=== PATIENT | male | born 1940 | race Caucasian/White ===

== ENCOUNTER 2018-12-18 17:34 | Inpatient (IN) | payer MEDICARE, BC ==
[2018-12-18] MEDS ORDERED: Acetaminophen 500 MG Tab PO ONE (17:50)
--- NOTE | 2018-12-18 17:56 | EDM.PDOC ---
ED HPI GENERAL MEDICAL PROBLEM - General Chief Complaint: Respiratory Problem Stated Complaint: Patient states he has been feeling weak all day tried to get out of bed approximately 4:00 7 while trying to get up and more or less slid out of the bed on the floor and EMS was called he denies any trauma head injury chest pain shortness breath says he has felt warm all day like he's had a fever and just generalized weakness Time Seen by Provider: 12/18/18 17:45 Source of Information: Reports: Patient, EMS History Limitations: Reports: No Limitations - History of Present Illness Onset: Today Duration: Day(s): Associated Symptoms: Reports: Cough, cough w sputum, Fever/Chills, Weakness. Denies: Chest Pain, Diaphoresis, Headaches, Nausea/Vomiting, Shortness of Breath , Syncope Treatments [employer]: Denies: Acetaminophen, Aspirin, Breathing Treatments - Related Data Allergies Allergy/AdvReac Type Severity Reaction Status Date / Time amoxicillin Allergy Cannot Verified 12/18/18 18:00 Remember tetanus immune globulin Allergy Cannot Verified 12/18/18 18:00 Remember chicken derived AdvReac Abdominal Verified 12/18/18 18:00 Cramps Home Meds: Home Meds Acetaminophen [Acetaminophen Extra Strength] 1,000 mg PO Q8HR 02/13/15 [History] Aspirin [Halfprin] 81 mg PO DAILY 02/13/15 [History] Carvedilol [Coreg] 25 mg PO BIDM 02/13/15 [History] Finasteride [Proscar] 5 mg PO DAILY 02/13/15 [History] Flaxseed Oil [Flax Oil] 1,000 mg PO DAILY 02/13/15 [History] Furosemide [Lasix] 20 mg PO BID 02/13/15 [History] Lutein 6 mg PO DAILY 02/13/15 [History] Multivitamin with Minerals [Multiple Vitamin] 1 tab PO DAILY 02/13/15 [History] Pravastatin [Pravachol] 40 mg PO DAILY 02/13/15 [History] Vit B Cmplx 3/Fa/Vit C/Biotin [Mirian-Babar Rx Tablet] 1 each PO DAILY 02/13/15 [ History] Docusate Sodium/Sennosides [Senna Plus] 1 tab PO BID #60 tablet 05/18/15 [Rx] Polyethylene Glycol 3350 [MiraLAX] 17 gm PO DAILY #30 packet 05/18/15 [Rx] Baclofen 10 mg PO TID PRN 12/18/18 [History] DULoxetine [Cymbalta] 30 mg PO TID 12/18/18 [History] Gabapentin [Neurontin] 400 mg PO BID 12/18/18 [History] Gabapentin [Neurontin] 400 mg PO BID 12/18/18 [History] Ipratropium [Atrovent HFA Inh] 2 puff IH Q4H PRN 12/18/18 [History] Vitamin E (dl, acetate) [Vitamin E] 200 units PO BID 12/18/18 [History] ED ROS GENERAL - Review of Systems Review Of Systems: See Below Constitutional: Reports: Fever, Weakness, Fatigue. Denies: Chills, Diaphoresis HEENT: Reports: No Symptoms Respiratory: Reports: Cough, Sputum. Denies: Shortness of Breath, Wheezing, Pleuritic Chest Pain Cardiovascular: Reports: Edema (Patient states he has daily chronic edema no changes from his baseline which he takes Lasix for). Denies: Chest Pain Endocrine: Reports: Fatigue GI/Abdominal: Reports: No Symptoms. Denies: Abdominal Pain, Anorexia, Black Stool, Bloody Stool : Reports: No Symptoms Musculoskeletal: Reports: No Symptoms Skin: Reports: No Symptoms Neurological: Reports: Weakness (Generalized weakness all over denies any specific weakness to any extremity). Denies: Confusion, Dizziness, Headache, Numbness Psychiatric: Reports: No Symptoms Hematologic/Lymphatic: Denies: Easy Bleeding, Easy Bruising Immunologic: Reports: No Symptoms ED EXAM, GENERAL - Physical Exam Exam: See Below Exam Limited By: No Limitations General Appearance: Alert, WD/WN, No Apparent Distress Eye Exam: Bilateral Eye: PERRL Ears: Normal External Exam, Hearing Grossly Normal Nose: Normal Inspection, Normal Mucosa. No: Nasal Swelling Throat/Mouth: Normal Inspection, Normal Lips, Normal Teeth, Normal Gums, Normal Oropharynx (Moist membranes), Normal Voice, No Airway Compromise, Other (mmm) Head: Atraumatic, Normocephalic Neck: Normal Inspection, Supple, Non-Tender, Full Range of Motion. 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 No : Non-Tender, No Pedal Edema Neurological: Alert, Oriented, CN II-XII Intact, Normal Cognition Skin Exam: Warm, Dry, Intact, Normal Color, No Rash, Other (Patient does feel warm over the body) Course - Vital Signs Last Recorded V/S: Last Vital Signs Temp 37.0 C 12/19/18 10:00 Pulse 69 12/19/18 10:00 Resp 16 12/19/18 10:00 BP 128/73 12/19/18 10:00 Pulse Ox 95 12/19/18 10:00 - Orders/Labs/Meds Orders: Active Orders 24 hr Category Date Time Status CULTURE BLOOD [BC] Stat Lab 12/18/18 18:30 Received CULTURE BLOOD [BC] Stat Lab 12/18/18 18:35 Received Blood Culture x2 Reflex Set [OM.PC] Stat Oth 12/18/18 17:49 Ordered Medication Orders Acetaminophen (Tylenol Extra Strength) 1,000 mg PO Q8HR [facility] Last Admin: 12/19/18 07:50 Dose: 1,000 mg Admin: 12/19/18 00:41 Dose: 1,000 mg Aspirin (Halfprin) 81 mg PO DAILY [facility] Last Admin: 12/19/18 07:51 Dose: 81 mg Azithromycin (Zithromax) 250 mg PO DAILY [facility] Stop: 12/22/18 08:01 Last Admin: 12/19/18 07:50 Dose: 250 mg Baclofen (Lioresal) 10 mg PO TID PRN PRN Reason: Other Carvedilol (Coreg) 25 mg PO BIDM [facility] Last Admin: 12/19/18 07:50 Dose: 25 mg Duloxetine HCl (Cymbalta) 30 mg PO TID [facility] Last Admin: 05/12/19 11:06 Dose: 30 mg Admin: 12/19/18 07:50 Dose: 30 mg Finasteride (Proscar) 5 mg PO DAILY [facility] Last Admin: 12/19/18 07:50 Dose: 5 mg Furosemide (Lasix) 20 mg IV Q8H [facility] Last Admin: 12/19/18 07:51 Dose: 20 mg Admin: 12/19/18 00:34 Dose: 20 mg Gabapentin (Neurontin) 400 mg PO BID [facility] Last Admin: 12/19/18 07:50 Dose: 400 mg Guaifenesin (Mucinex) 600 mg PO TID [facility] Last Admin: 12/19/18 11:07 Dose: 600 mg Admin: 12/19/18 07:50 Dose: 600 mg Levalbuterol HCl (Xopenex) 1.25 mg NEB Q4H [facility] Last Admin: 12/19/18 11:06 Dose: 1.25 mg Admin: 12/19/18 06:16 Dose: 1.25 mg Admin: 12/19/18 03:23 Dose: Not Given Methylprednisolone Sodium Succinate (Solu-Medrol) 125 mg IVPUSH Q8H [facility] Last Admin: 12/19/18 07:51 Dose: 125 mg Admin: 12/19/18 00:34 Dose: 125 mg Non-Formulary Medication (Flaxseed Oil [Flax Oil]) 1,000 mg PO DAILY [facility] Last Admin: 12/19/18 07:51 Dose: Non-Formulary Medication (Pravastatin Sodium) 40 mg PO DAILY [facility] Last Admin: 12/19/18 07:51 Dose: Polyethylene Glycol (Miralax) 17 gm PO DAILY PRN PRN Reason: Constipation Senna/Docusate Sodium (Senna Plus) 1 tab PO BID [facility] Last Admin: 12/19/18 07:50 Dose: 1 tab Sodium Chloride (Saline Flush) 10 ml IV ASDIRECTED PRN PRN Reason: Keep Vein Open Labs: Laboratory Tests 12/18/18 12/18/18 12/18/18 Range/Units 18:00 18:30 18:30 WBC 9.1 (4.0-10.0) x10^3/uL RBC 5.49 (4.5-6.0) x10^6/uL Hgb 14.7 D (14.0-18.0) g/dL Hct 45.6 (40.0-52.0) % MCV 83.1 (78.0-93.0) fL MCH 26.8 (26.0-32.0) pg MCHC 32.2 (32.0-36.0) g/dL RDW Coeff of Dina 14.3 (10.0-15.0) % Plt Count 148 (130-400) x10^3/uL Neut % (Auto) 87.3 H (50.0-80.0) % Lymph % (Auto) 6.0 L (25.0-50.0) % [place] % (Auto) 6.3 (2.0-11.0) % Eos % (Auto) 0.2 (0.0-4.0) % Baso % (Auto) 0.2 (0.2-1.2) % Sodium 143 (136-145) mmol/L Potassium 3.9 (3.5-5.1) mmol/L Chloride 102 (98-107) mmol/L Carbon Dioxide 33 H (21-32) mmol/L Anion Gap 11.9 (10-20) mmol/L BUN 16 (7-18) mg/dL Creatinine 1.4 H (0.70-1.30) mg/dL Est Cr Clr Drug Dosing TNP Estimated GFR (MDRD) 49 Glucose 123 H (74-106) mg/dL Calcium 8.5 (8.5-10.1) mg/dL Troponin I 0.020 (<=0.056) ng/mL Urine Color Yellow (YELLOW) Urine Appearance Slightly cloudy H (CLEAR) Urine pH 7.0 (5.0-8.0) Ur Specific [place] 1.015 Urine Protein Negative (NEGATIVE) mg/dL Urine Glucose (UA) Negative (NEGATIVE) mg/dL Urine Ketones Negative (NEGATIVE) mg/dL Urine Occult Blood Negative (NEGATIVE) Urine Nitrite Negative (NEGATIVE) Urine Bilirubin Negative (NEGATIVE) Urine Urobilinogen 0.2 (0.2) EU/dL Ur Leukocyte Esterase Negative (NEGATIVE) Urine RBC 0-5 (NOT SEEN) /HPF Urine WBC 0-5 (NOT SEEN) /HPF Ur Squamous Epith Cells Not seen (NEGATIVE) /HPF Urine Bacteria Rare (NEGATIVE) /HPF Urine Mucus Moderate H (NEGATIVE) /LPF Meds: Medications Generic Name Dose Route Start Last Admin Trade Name Freq PRN Reason Stop Dose Admin Acetaminophen 1,000 mg 12/19/18 00:00 12/19/18 07:50 Tylenol Extra Strength PO 1,000 mg Q8HR TIFFANI Administration Aspirin 81 mg 12/19/18 08:00 12/19/18 07:51 Halfprin PO 81 mg DAILY TIFFANI Administration Azithromycin 250 mg 12/19/18 08:00 12/19/18 07:50 Zithromax PO 12/22/18 08:01 250 mg DAILY TIFFANI Administration Baclofen 10 mg 12/18/18 21:41 Lioresal PO TID PRN Other Carvedilol 25 mg 12/19/18 08:00 12/19/18 07:50 Coreg PO 25 mg BIDM TIFFANI Administration Duloxetine HCl 30 mg 12/19/18 08:00 12/19/18 11:06 Cymbalta PO 30 mg TID TIFFANI Administration Finasteride 5 mg 12/19/18 08:00 12/19/18 07:50 Proscar PO 5 mg DAILY TIFFANI Administration Furosemide 20 mg 12/19/18 00:00 12/19/18 07:51 Lasix IV 20 mg Q8H TIFFANI Administration Gabapentin 400 mg 12/19/18 08:00 12/19/18 07:50 Neurontin PO 400 mg BID TIFFANI Administration Guaifenesin 600 mg 12/19/18 08:00 12/19/18 11:07 Mucinex PO 600 mg TID TIFFANI Administration Levalbuterol HCl 1.25 mg 12/19/18 03:00 12/19/18 11:06 Xopenex NEB 1.25 mg Q4H TIFFANI Administration Methylprednisolone Sodium Succinate 125 mg 12/19/18 00:00 12/19/18 07:51 Solu-Medrol IVPUSH 125 mg Q8H TIFFANI Administration Non-Formulary Medication 1,000 mg 12/19/18 08:00 12/19/18 07:51 Flaxseed Oil [Flax Oil] PO Not Given DAILY [facility] Non-Formulary Medication 40 mg 12/19/18 08:00 12/19/18 07:51 Pravastatin Sodium PO Not Given DAILY [facility] Polyethylene Glycol 17 gm 12/19/18 00:21 Miralax PO DAILY PRN Constipation Senna/Docusate Sodium 1 tab 12/19/18 08:00 12/19/18 07:50 Senna Plus PO 1 tab BID TIFFANI Administration Sodium Chloride 10 ml 05/12/19 00:47 Saline Flush IV ASDIRECTED PRN Keep Vein Open Discontinued Medications Generic Name Dose Route Start Last Admin Trade Name Abebe PRN Reason Stop Dose Admin Acetaminophen 1,000 mg 12/18/18 17:50 12/18/18 18:03 Tylenol Extra Strength PO 12/18/18 17:51 1,000 mg ONETIME ONE Administration Azithromycin 500 mg 12/19/18 00:02 12/19/18 00:41 Zithromax PO 12/19/18 00:03 500 mg ONETIME ONE Administration Guaifenesin 600 mg 12/19/18 00:05 12/19/18 01:26 Mucinex PO 12/19/18 00:06 Not Given ONETIME ONE Guaifenesin 400 mg 12/19/18 00:07 Robitussin PO Q6H PRN Cough Guaifenesin 400 mg 12/19/18 00:14 12/19/18 01:00 Robitussin PO 12/19/18 00:15 400 mg ONETIME ONE Administration Levalbuterol HCl 1.25 mg 12/19/18 00:30 12/19/18 00:36 Xopenex NEB 1.25 mg Q4H TIFFANI Administration Non-Formulary Medication 400 mg 12/19/18 08:00 Gabapentin PO BID TIFFANI Polyethylene Glycol 17 gm 12/19/18 08:00 Miralax PO DAILY TIFFANI - Re-Assessments/Exams Free Text/Narrative Re-Assessment/Exam: 12/18/18 17:57 Labs were ordered CBC BMP and blood cultures 2 troponin secondary to weakness chest x-ray and urinalysis as well 12/18/18 20:01 Due to patient's condition initially oxygen saturations around 85% on room air patient will be admitted for observation pathway of COPD/Hypoxia giving treatments for a while waiting the patient remembers that he has been on Spiriva in the past but has not lately secondary to cost Free Text/Narrative Re-Assessment/Exam: 12/18/18 19:55 CBC was within normal limits BMP baseline normal UA was negative chest x-ray no acute cardiopulmonary abnormality Departure - Departure Time of Disposition: 20:00 Disposition: Refer to Observation Condition: Good Clinical Impression: Weakness, COPD (chronic obstructive pulmonary disease), Hypoxia, Fever, CHF ( congestive heart failure) - Discharge Information - Problem List & Annotations (1) COPD (chronic obstructive pulmonary disease) SNOMED Code(s): 76672246 Code(s): J44.9 - CHRONIC OBSTRUCTIVE PULMONARY DISEASE, UNSPECIFIED Status : Acute Current Visit: Yes (2) Hypoxia SNOMED Code(s): 949869212 Code(s): R09.02 - HYPOXEMIA Status: Acute Current Visit: Yes (3) COPD (chronic obstructive pulmonary disease) SNOMED Code(s): 09982902 Code(s): J44.9 - CHRONIC OBSTRUCTIVE PULMONARY DISEASE, UNSPECIFIED Status : Acute Current Visit: Yes - My Orders Last 24 Hours: My Active Orders 12/18/18 17:49 Blood Culture x2 Reflex Set [OM.PC] Stat 12/18/18 18:30 CULTURE BLOOD [BC] Stat 12/18/18 18:35 CULTURE BLOOD [BC] Stat - Assessment/Plan Admission H&P: Please use this note as an admission H&P Last 24 Hours: My Active Orders 12/18/18 17:49 Blood Culture x2 Reflex Set [OM.PC] Stat 12/18/18 18:30 CULTURE BLOOD [BC] Stat 12/18/18 18:35 CULTURE BLOOD [BC] Stat Plan: Patient will be placed in observation overnight he will be given Solu-Medrol 125 mg IV every 8 hours Lasix 20 mg every 8 hours Zithromax 500 mg by mouth now followed by 250 by mouth daily for 4 days patient will be placed on oxygen at 2 L nasal cannula patient will also be given guaifenesin for her milligrams every 6 hours Xopenex nebulizer Q4 to 6 hours
--- NOTE | 2018-12-18 18:44 | CR ---
[id number] RAD/RAD Chest PA or AP 1V EXAM: RAD Chest PA or AP 1V INDICATION: FEVER COMPARISON: March 01, 2015. DISCUSSION: Median sternotomy wires. Cardiomediastinal silhouette is stable in size and contour. No infiltrate, effusion, pneumothorax, or edema. IMPRESSION: No acute cardiopulmonary abnormality. Danie Maya DO 12/18/18 1843 Thank you for allowing us to participate in the care of your patient.
[2018-12-18 19:06] LABS: CHLORIDE,CL 102 mmol/L (98-107); SODIUM,NA 143 mmol/L (136-145)
[2018-12-18 19:07] LABS: ANION GAP 11.9 mmol/L (10-20)
[2018-12-18] MEDS ORDERED: Baclofen 10 MG Tab PO PRN (21:41)
[2018-12-19] MEDS ORDERED: Azithromycin 250 MG Tab PO ONE (00:02)
[2018-12-19] MEDS ORDERED: guaiFENesin 600 MG Tab.ER PO ONE (00:05)
[2018-12-19] MEDS ORDERED: guaiFENesin 100 MG/5 ML Soln 10 ML UD Cup PO PRN (00:07)
[2018-12-19] MEDS ORDERED: guaiFENesin 100 MG/5 ML Soln 10 ML UD Cup PO ONE (00:14)
[2018-12-19] MEDS ORDERED: Levalbuterol HCl 1.25 MG/0.5 ML Neb NEB SCH (00:30)
[2018-12-19] MEDS: methylPREDNISolone Sodium Succinate 125 MG/2 ML SDV IVPUSH SCH ×3 (00:34→16:27)
[2018-12-19] MEDS: Furosemide 20 MG/2 ML VIAL IV SCH ×3 (00:34→16:27)
[2018-12-19] MEDS: Acetaminophen 500 MG Tab PO SCH ×3 (00:41→16:27)
[2018-12-19] MEDS: Levalbuterol HCl 1.25 MG/0.5 ML Neb NEB SCH ×6 (03:23→23:43)
[2018-12-19] MEDS: Azithromycin 250 MG Tab PO SCH (07:50)
[2018-12-19] MEDS: Gabapentin 400 MG Cap PO SCH ×2 (07:50→20:52)
[2018-12-19] MEDS: guaiFENesin 600 MG Tab.ER PO SCH ×3 (07:50→20:52)
[2018-12-19] MEDS: Finasteride 5 MG Tab PO SCH (07:50)
[2018-12-19] MEDS: DULoxetine 30 MG Cap PO SCH ×3 (07:50→20:52)
[2018-12-19] MEDS: Carvedilol 25 MG Tab PO SCH ×2 (07:50→17:29)
[2018-12-19] MEDS: FLAXSEED OIL 1000 MG PO SCH (07:51)
[2018-12-19] MEDS: Non-Formulary Medication 1 Each (Pravastatin Sodium 40 MG) PO SCH (07:51)
[2018-12-19] MEDS: Aspirin 81 MG Tab.EC PO SCH (07:51)
[2018-12-19] MEDS ORDERED: Non-Formulary Medication 1 Each (Gabapentin 400 MG) PO SCH (08:00)
[2018-12-19] MEDS ORDERED: Polyethylene Glycol 3350 Powder 17 GM Packet PO SCH (08:00)
[2018-12-19] MEDS: Polyethylene Glycol 3350 Powder 17 GM Packet PO PRN (21:01)
[2018-12-20] MEDS: Furosemide 20 MG/2 ML VIAL IV SCH ×4 (01:14→23:09)
[2018-12-20] MEDS: Sodium Chloride 0.9% 10 ML Syringe IV PRN ×3 (01:15→23:09)
[2018-12-20] MEDS: methylPREDNISolone Sodium Succinate 125 MG/2 ML SDV IVPUSH SCH ×4 (01:15→23:08)
[2018-12-20] MEDS: Acetaminophen 500 MG Tab PO SCH ×4 (01:17→23:09)
[2018-12-20] MEDS: Levalbuterol HCl 1.25 MG/0.5 ML Neb NEB SCH ×6 (03:10→23:09)
[2018-12-20] MEDS: Polyethylene Glycol 3350 Powder 17 GM Packet PO PRN (06:36)
[2018-12-20] MEDS: Aspirin 81 MG Tab.EC PO SCH (07:41)
[2018-12-20] MEDS: Azithromycin 250 MG Tab PO SCH (07:41)
[2018-12-20] MEDS: Carvedilol 25 MG Tab PO SCH ×2 (07:41→17:44)
[2018-12-20] MEDS: Finasteride 5 MG Tab PO SCH (07:41)
[2018-12-20] MEDS: guaiFENesin 600 MG Tab.ER PO SCH ×3 (07:41→20:46)
[2018-12-20] MEDS: Gabapentin 400 MG Cap PO SCH ×2 (07:41→20:46)
[2018-12-20] MEDS: DULoxetine 30 MG Cap PO SCH ×3 (07:41→20:46)
[2018-12-20] MEDS: FLAXSEED OIL 1000 MG PO SCH (07:42)
[2018-12-20] MEDS: Non-Formulary Medication 1 Each (Pravastatin Sodium 40 MG) PO SCH (07:43)
--- NOTE | 2018-12-20 15:25 | PCM.HP ---
H&P History of Present Illness - General Date of Service: 12/20/18 Admit Problem/Dx: Admission Diagnosis/Problem HPI: He was admitted to observation on 12/18 and changed to Acute Care status today because he is still requiring oxygen at 2L/min. On admission he had about 36 hours of cough and low-grade fever, has known COPD following a 40+ pk-yr smoking Hx, quit in . Prior to heart surgery in he had PFTs which showed FEV1/FVC 57% of predicted, FEV1 53% of predicted. He was advised to use inhalers but found them too expensive so he has not done that. On the day of admission he felt unusually weak, vision was blurred, increased dyspnea and was seen in ER. Troponin was negative, EKG showed LBBB, unknown when he developed that but his last EKG 06/23 did not show it. He was admitted to observation and Rx Zithromax for exacerbation of COPD. He was not having any chest pain then, but today he still requires oxygen at 2L and he had some discomfort across his entire chest this morning, lasting for about one hour. Troponin is again negative. He denies having any exertional chest pain for many years, although in 11/21 he did have a Persantin/Lexiscan PET for exertional chest pain , unremarkable. He is on Pravachol for hyperlipidemia, got DX of mild peripheral vascular disease in 01/25, CHARLETTE of R leg was normal at 0.9, L mildly abnormal at 0.75, admits to mild claudication L. 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 valve, CABG x1, left internal mammary artery to the LAD. -09/20 Sleep Study: Positive, titration for CPAP; Dx Mild, he refused CPAP, disputes the DX because they made him sleep on his back which is not usual for him -03/21: Echo: EF 60%; normal function of aortic bioprosthetic valve 05/21: new onset a-fib with sxs of chest pain and shortness of breath; successful cardioversion for atrial fibrillation; started on Cardizem and warfarin by primary -05/21: Lexiscan Cardiolite demonstrating inferior wall ischemia -05/21: cardiac PET: negative for ischemia -12/20: atrial fibrillation again noted on EKG; on anticoagulation; f/u EKG NSR; paroxysmal a-fib -01/20: Echo: EF 60%; mild diastolic dysfunction; a [address] [employer] porcine bioprosthesis was present. -11/21% Persantin/Lexiscan PET for exertional chest pain -02/20 Cardiology consult for 2 years of paroxysmal atrial fib, one cardioversion during that time, gets exertional dyspnea, mild stable chest pain with exertion since his valve surgery in Cardiology consult for exertional dyspnea, no palpitations since ablation for paroxysmal atrial fibrillation; EKG was OK (no LBBB then) -12/24 lumbar MRI for radicular back pain following pelvis Fx. Foraminal narrowing at L L4-5; see Neurosurg consult in Surg Hx -09/27 explantation of LINQ implanted monitor that had been implanted 07/23 -01/25 CHRALETTE for possible PVD: 0.9 on R, 0.75 on L, and decreased slightly from 1.0 and 0.9 in 05/24, DX mild PVD L Surgical History: -Hx PDA, and [facility] , but has never had repair, closure confirmed, ? spontaneous closure -Remote Hx severe laceration of L index finger, surprisingly good result from the tendon repair -Remote Hx R hip Fx, nailing from falling off power pole, good recovery from that -02/08 L tibial shaft fracture, heavy object fell on him at work, Rx long leg cast -01/16; Aortic valve replacement and CABG x 1, see Med Hx -02/20 Ablation procedure for paroxysmal atrial fib -07/23 implantation of monitor for paroxysmal atrial fib -08/24 Urol consult for hematuria; known BPH, thought to be from that, Coumadin D /Cd -01/28/15 pelvis Fx, run over by a tractor at work, years of trouble, Rx PT, power wheelchair; Dx on D/C -02/13/15: 1. Right acetabular fracture, left sacral fracture, bilateral pubic rami fractures s/p ORIF -01/31/2015 2. Right radius/ulna fractures s/p ORIF 02/06/2015 3. Rhabdomyolysis, resolved -12/24 Ortho F/U, still has radicular pain, Rx MRI -04/26 Neurosurgery consult re-radiculopathy (see MRI 12/24); feels the pain is from plexopathy from the injury, unlikely to be from the foraminal narrowing - Explantation of implanted momnitor, see Med Hx Family History: -F d. age 101 -M d. in her 70s of some kind of Ca -Sis (twin) d of iatrogenic complications of RadRx for lung Ca -2 Bs, 2 Ss, 2 children OK Social Hx: Parents Jonny and Maxx Murphy lived in many years, Jonny had [place] [employer]. 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 Systems Review: Constitutional: Mildly obese, good appetite and trying to lose some weight Eyes: Has macular degeneration, the blurred vision that he had with his weakness 2 days ago is much better now ENT: Only has 3 teeth left, had many of the infected ones pulled before his heart surgery; hearing is nearly normal; he feels the DX of mild Sleep Apnea he got years ago is not accurate because they made him sleep on his back and he is not used to that Cardiac: First it appeared that the leg edema was a new event 2 days ago, but he admits now that he wears TAYLER stockings all year except during the hot part of the summer, because he always has some ankle edema; see HPI regarding pain and extensive Hx Pulmonary: See HPI; started smoking as a teenager, 1 ppd, quit in 02 when he broke his leg GI: He is overdue for another FOB, has had a few negative ones but none recently : No hematuria since stopping Coumadin, denies hesitancy but has mild urinary urgency Endocrine: On Pravachol for lipids, tolerating OK, never had elevation of blood sugar Heme: Says he bruises easily because skin is mildly fragile but clots readily when he cuts himself Musculoskeletal: Except for his injured pelvis (01/22) and L index finger ( teenager or young adult), joints OK Derm: No problems Neuro: Mild tremor, no syncope or headaches Psych: No Hx of depression or other mood disorder Allergies: Some seasonal allergies, especially when mowing the lawn Physical Exam: -General: Alert, oriented and in no distress; present and contributes some Hx -Eyes: Pupils equal -ENT: Only a few teeth remaining, tongue appears normal, TMs obscured by cerumen , hearing seems OK -Neck: No thyroid enlargement, masses, or bruit -Chest: Breath sounds are normal but diminished in intensity, PEF not tested -Heart: Regular rhythm, normal except heart sounds distant; 2+ ankle edema, unable to feel pulses in feet -Abdomen: No organomegaly, masses, tenderness, or inguinal hernia -Rectal: Not done -Extremities: Did not test R OM of hips; knees extend fully; 2+ ankle edema -Neuro: Facial muscles, speech and movement of extremities normal -Psych: Affect normal Impression: -COPD, symptomatic from exacerbation, now on Zithromax and weaning off of oxygen ; unknown whether he will be able to go home without oxygen or not -Former smoker, none for 17 years but has 40+ pk-yr Hx -Has refused inhalers for COPD because of cost -Exertional chest pain and today chest pain at rest, mild and seems fairly stable -Atherosclerotic disease, HX of CABG of LAD, disease was mild but he was getting valve replacement anyway; mild peripheral artery disease L leg -Mild limitation of activity secondary to previous injuries, especially pubic rami, R acetabulum, L sacral fractures from injury 01/22, had ORIF, Fx R radius/ ulna with ORIF Plan: -Urged to consider going on inhalers for COPD -If he can be weaned tomorrow he can go home without oxygen -Should see cardiology within 2 weeks, discussed with portable power tool repairer customer solutions coordinator today , Dr. Butt - Related Data Allergies/Adverse Reactions: Allergies Allergy/AdvReac Type Severity Reaction Status Date / Time amoxicillin Allergy Cannot Verified 12/18/18 18:00 Remember tetanus immune globulin Allergy Cannot Verified 12/18/18 18:00 Remember chicken derived AdvReac Abdominal Verified 12/18/18 18:00 Cramps Home Medications: Home Meds Acetaminophen [Acetaminophen Extra Strength] 1,000 mg PO Q8HR 02/13/15 [History] Aspirin [Halfprin] 81 mg PO DAILY 02/13/15 [History] Carvedilol [Coreg] 25 mg PO BIDM 02/13/15 [History] Finasteride [Proscar] 5 mg PO DAILY 02/13/15 [History] Flaxseed Oil [Flax Oil] 1,000 mg PO DAILY 02/13/15 [History] Furosemide [Lasix] 20 mg PO BID 02/13/15 [History] Lutein 6 mg PO DAILY 02/13/15 [History] Multivitamin with Minerals [Multiple Vitamin] 1 tab PO DAILY 02/13/15 [History] Pravastatin [Pravachol] 40 mg PO DAILY 02/13/15 [History] Vit B Cmplx 3/Fa/Vit C/Biotin [Mirian-Babar Rx Tablet] 1 each PO DAILY 02/13/15 [ History] Docusate Sodium/Sennosides [Senna Plus] 1 tab PO BID #60 tablet 05/18/15 [Rx] Polyethylene Glycol 3350 [MiraLAX] 17 gm PO DAILY #30 packet 05/18/15 [Rx] Baclofen 10 mg PO TID PRN 12/18/18 [History] DULoxetine [Cymbalta] 30 mg PO TID 12/18/18 [History] Gabapentin [Neurontin] 400 mg PO BID 12/18/18 [History] Gabapentin [Neurontin] 400 mg PO BID 12/18/18 [History] Ipratropium [Atrovent HFA Inh] 2 puff IH Q4H PRN 12/18/18 [History] Vitamin E (dl, acetate) [Vitamin E] 200 units PO BID 12/18/18 [History] Past Medical History HEENT History: Reports: Cataract Cardiovascular History: Reports: Afib, Bypass, CAD, Heart Failure, High Cholesterol, Hypertension, PVD, Other (See Below) Other Cardiovascular History: patent ductus arteriosus Respiratory History: Reports: COPD, Sleep Apnea Genitourinary History: Reports: BPH Musculoskeletal History: Reports: Osteoarthritis Other Musculoskeletal History: neuropathy Neurological History: Reports: Neuropathy, Peripheral Endocrine/Metabolic History: Reports: Obesity/BMI 30+ Other Endocrine/Metabolic History: prediabetes Hematologic History: Reports: Blood Transfusion(s) Immunologic History: Reports: None - Past Surgical History HEENT Surgical History: Reports: Adenoidectomy, Tonsillectomy Cardiovascular Surgical History: Reports: Coronary Artery Bypass, Valve Replacement Other Cardiovascular Surgeries/Procedures: aortic valve replacement Respiratory Surgical History: Reports: None Musculoskeletal Surgical History: Reports: Other (See Below) Other Musculoskeletal Surgeries/Procedures:: R leg fx surgury, extensive reconstructive surgury from trauma January 2015 Social & Family History - Family History Family Medical History: Noncontributory - Tobacco Use Smoking Status *Q: Former Smoker Years of Tobacco use: 30 Packs/Tins Daily: 3 Used Tobacco, but Quit: Yes Month/Year Tobacco Last Used: 03/2005 Second Hand Smoke Exposure: No - Caffeine Use Caffeine Use: Reports: Coffee - Recreational Drug Use Recreational Drug Use: No H&P Review of Systems - Review of Systems: Review Of Systems: See Below Exam - Exam Exam: See Below - Vital Signs Vital Signs: Last Vital Signs Temp 35.7 C 12/20/18 14:00 Pulse 78 12/20/18 14:00 Resp 20 12/20/18 14:00 BP 144/53 H 12/20/18 14:00 Pulse Ox 93 L 12/20/18 14:00 Weight: 124.511 kg - Patient Data Lab Results Last 24 hrs: Laboratory Results - last 24 hr 12/20/18 Range/Units 08:26 Troponin I < 0.017 (<=0.056) ng/mL Result Diagrams: 12/18/18 18:30 12/18/18 18:30 Dagoberto Results Last 24 hrs: Microbiology 12/18/18 18:35 Aerobic Blood Culture - Preliminary Blood - Venous - Lab Draw NO GROWTH AFTER 1 DAY Anaerobic Blood Culture - Preliminary NO GROWTH AFTER 1 DAY 12/18/18 18:30 Aerobic Blood Culture - Preliminary Blood - Venous NO GROWTH AFTER 1 DAY Anaerobic Blood Culture - Preliminary NO GROWTH AFTER 1 DAY Problem List Initiated/Reviewed/Updated: Yes Orders Last 24hrs: Active Orders 24 hr Category Date Time Status Admission Status [Patient Status] [ADT] Routine ADT 12/20/18 13:26 Active Communication Order [RC] ROUTINE Care 12/20/18 14:18 Ordered EKG 12 Lead [EKG Documentation Completion] [RC] STAT Care 12/20/18 07:50 Active Medication Orders Acetaminophen (Tylenol Extra Strength) 1,000 mg PO Q8HR [facility] Last Admin: 12/20/18 07:41 Dose: 1,000 mg Admin: 12/20/18 01:17 Dose: 1,000 mg Admin: 12/19/18 16:27 Dose: 1,000 mg Admin: 12/19/18 07:50 Dose: 1,000 mg Admin: 12/19/18 00:41 Dose: 1,000 mg Aspirin (Halfprin) 81 mg PO DAILY [facility] Last Admin: 12/20/18 07:41 Dose: 81 mg Admin: 12/19/18 07:51 Dose: 81 mg Azithromycin (Zithromax) 250 mg PO DAILY [facility] Stop: 12/22/18 08:01 Last Admin: 12/20/18 07:41 Dose: 250 mg Admin: 12/19/18 07:50 Dose: 250 mg Baclofen (Lioresal) 10 mg PO TID PRN PRN Reason: Other Carvedilol (Coreg) 25 mg PO BIDM [facility] Last Admin: 12/20/18 07:41 Dose: 25 mg Admin: 12/19/18 17:29 Dose: 25 mg Admin: 12/19/18 07:50 Dose: 25 mg Duloxetine HCl (Cymbalta) 30 mg PO TID [facility] Last Admin: 12/20/18 11:08 Dose: 30 mg Admin: 12/20/18 07:41 Dose: 30 mg Admin: 12/19/18 20:52 Dose: 30 mg Admin: 12/19/18 11:06 Dose: 30 mg Admin: 12/19/18 07:50 Dose: 30 mg Finasteride (Proscar) 5 mg PO DAILY [facility] Last Admin: 12/20/18 07:41 Dose: 5 mg Admin: 12/19/18 07:50 Dose: 5 mg Furosemide (Lasix) 20 mg IV Q8H [facility] Last Admin: 12/20/18 07:42 Dose: 20 mg Admin: 12/20/18 01:14 Dose: 20 mg Admin: 12/19/18 16:27 Dose: 20 mg Admin: 12/19/18 07:51 Dose: 20 mg Admin: 12/19/18 00:34 Dose: 20 mg Gabapentin (Neurontin) 400 mg PO BID [facility] Last Admin: 12/20/18 07:41 Dose: 400 mg Admin: 12/19/18 20:52 Dose: 400 mg Admin: 12/19/18 07:50 Dose: 400 mg Guaifenesin (Mucinex) 600 mg PO TID [facility] Last Admin: 12/20/18 11:08 Dose: 600 mg Admin: 12/20/18 07:41 Dose: 600 mg Admin: 12/19/18 20:52 Dose: 600 mg Admin: 12/19/18 11:07 Dose: 600 mg Admin: 12/19/18 07:50 Dose: 600 mg Levalbuterol HCl (Xopenex) 1.25 mg NEB Q4H [facility] Last Admin: 12/20/18 11:08 Dose: 1.25 mg Admin: 12/20/18 06:34 Dose: 1.25 mg Admin: 12/20/18 03:10 Dose: 1.25 mg Admin: 12/19/18 23:43 Dose: 1.25 mg Admin: 12/19/18 18:06 Dose: 1.25 mg Admin: 12/19/18 15:07 Dose: 1.25 mg Admin: 12/19/18 11:06 Dose: 1.25 mg Admin: 12/19/18 06:16 Dose: 1.25 mg Admin: 12/19/18 03:23 Dose: Not Given Methylprednisolone Sodium Succinate (Solu-Medrol) 125 mg IVPUSH Q8H [facility] Last Admin: 12/20/18 07:42 Dose: 125 mg Admin: 12/20/18 01:15 Dose: 125 mg Admin: 12/19/18 16:27 Dose: 125 mg Admin: 12/19/18 07:51 Dose: 125 mg Admin: 12/19/18 00:34 Dose: 125 mg Non-Formulary Medication (Flaxseed Oil [Flax Oil]) 1,000 mg PO DAILY [facility] Last Admin: 12/20/18 07:42 Dose: Admin: 12/19/18 07:51 Dose: Non-Formulary Medication (Pravastatin Sodium) 40 mg PO DAILY [facility] Last Admin: 12/20/18 07:43 Dose: Admin: 12/19/18 07:51 Dose: Polyethylene Glycol (Miralax) 17 gm PO DAILY PRN PRN Reason: Constipation Last Admin: 12/20/18 06:36 Dose: 17 gm Senna/Docusate Sodium (Senna Plus) 1 tab PO BID [facility] Last Admin: 12/20/18 07:41 Dose: 1 tab Admin: 12/19/18 20:52 Dose: 1 tab Admin: 12/19/18 07:50 Dose: 1 tab Sodium Chloride (Saline Flush) 10 ml IV ASDIRECTED PRN PRN Reason: Keep Vein Open Last Admin: 12/20/18 01:17 Dose: 10 ml Admin: 12/20/18 01:15 Dose: 10 ml
--- NOTE | 2018-12-20 16:11 | PCM.PN ---
- General Info Date of Service: 12/19/18 Admission Dx/Problem (Free Text): Patient recheck the morning of 19 Dec 2018 states feels much better and his breathing a lot easier was able to get up and walk around yesterday using his walker he has no complaints through the night complaints this morning says the swelling has went down and bilateral feet has had no chest pain or shortness of breath through the night - Review of Systems General: Denies: No Symptoms HEENT: Denies: No Symptoms Pulmonary: Denies: No Symptoms, Shortness of Breath, Pleuritic Chest Pain, Cough Cardiovascular: Reports: No Symptoms Gastrointestinal: Reports: No Symptoms Genitourinary: Reports: No Symptoms Musculoskeletal: Reports: No Symptoms Skin: Reports: No Symptoms Neurological: Reports: No Symptoms Psychiatric: Reports: No Symptoms - Patient Data Vitals - Most Recent: Last Vital Signs Temp 35.7 C 12/20/18 14:00 Pulse 78 12/20/18 14:00 Resp 20 12/20/18 14:00 BP 144/53 H 12/20/18 14:00 Pulse Ox 93 L 12/20/18 14:00 Weight - Most Recent: 124.511 kg I&O - Last 24 Hours: Intake & Output 12/20/18 12/20/18 12/20/18 06:59 14:59 22:59 Intake Total 350 480 Output Total 500 Balance -150 480 Lab Results Last 24 Hours: Laboratory Results - last 24 hr 12/20/18 Range/Units 08:26 Troponin I < 0.017 (<=0.056) ng/mL Dagoberto Results Last 24 Hours: Microbiology 12/18/18 18:35 Aerobic Blood Culture - Preliminary Blood - Venous - Lab Draw NO GROWTH AFTER 1 DAY Anaerobic Blood Culture - Preliminary NO GROWTH AFTER 1 DAY 12/18/18 18:30 Aerobic Blood Culture - Preliminary Blood - Venous NO GROWTH AFTER 1 DAY Anaerobic Blood Culture - Preliminary NO GROWTH AFTER 1 DAY Med Orders - Current: Current Medications Acetaminophen (Tylenol Extra Strength) 1,000 mg PO Q8HR [facility] Last Admin: 12/20/18 15:28 Dose: 1,000 mg Aspirin (Halfprin) 81 mg PO DAILY [facility] Last Admin: 12/20/18 07:41 Dose: 81 mg Azithromycin (Zithromax) 250 mg PO DAILY [facility] Stop: 12/22/18 08:01 Last Admin: 12/20/18 07:41 Dose: 250 mg Baclofen (Lioresal) 10 mg PO TID PRN PRN Reason: Other [facility] Last Admin: 12/20/18 07:41 Dose: 25 mg Duloxetine HCl (Cymbalta) 30 mg PO TID [facility] Last Admin: 12/20/18 11:08 Dose: 30 mg Finasteride (Proscar) 5 mg PO DAILY [facility] Last Admin: 12/20/18 07:41 Dose: 5 mg Furosemide (Lasix) 20 mg IV Q8H [facility] Last Admin: 12/20/18 15:26 Dose: 20 mg Gabapentin (Neurontin) 400 mg PO BID [facility] Last Admin: 12/20/18 07:41 Dose: 400 mg Guaifenesin (Mucinex) 600 mg PO TID [facility] Last Admin: 12/20/18 11:08 Dose: 600 mg Levalbuterol HCl (Xopenex) 1.25 mg NEB Q4H [facility] Last Admin: 12/20/18 15:30 Dose: 1.25 mg Methylprednisolone Sodium Succinate (Solu-Medrol) 125 mg IVPUSH Q8H [facility] Last Admin: 12/20/18 15:26 Dose: 125 mg Non-Formulary Medication (Flaxseed Oil [Flax Oil]) 1,000 mg PO DAILY [facility] Last Admin: 12/20/18 07:42 Dose: Not Given Non-Formulary Medication (Pravastatin Sodium) 40 mg PO DAILY [facility] Last Admin: 12/20/18 07:43 Dose: Not Given Polyethylene Glycol (Miralax) 17 gm PO DAILY PRN PRN Reason: Constipation Last Admin: 12/20/18 06:36 Dose: 17 gm Senna/Docusate Sodium (Senna Plus) 1 tab PO BID [facility] Last Admin: 12/20/18 07:41 Dose: 1 tab Sodium Chloride (Saline Flush) 10 ml IV ASDIRECTED PRN PRN Reason: Keep Vein Open Last Admin: 12/20/18 01:17 Dose: 10 ml Discontinued Medications Acetaminophen (Tylenol Extra Strength) 1,000 mg PO ONETIME ONE Stop: 12/18/18 17:51 Last Admin: 12/18/18 18:03 Dose: 1,000 mg Azithromycin (Zithromax) 500 mg PO ONETIME ONE Stop: 12/19/18 00:03 Last Admin: 12/19/18 00:41 Dose: 500 mg Guaifenesin (Mucinex) 600 mg PO ONETIME ONE Stop: 12/19/18 00:06 Last Admin: 12/19/18 01:26 Dose: Not Given Guaifenesin (Robitussin) 400 mg PO Q6H PRN PRN Reason: Cough Guaifenesin (Robitussin) 400 mg PO ONETIME ONE Stop: 12/19/18 00:15 Last Admin: 12/19/18 01:00 Dose: 400 mg Levalbuterol HCl (Xopenex) 1.25 mg NEB Q4H [facility] Last Admin: 12/19/18 00:36 Dose: 1.25 mg Non-Formulary Medication (Gabapentin) 400 mg PO BID [facility] Polyethylene Glycol (Miralax) 17 gm PO DAILY [facility] - Exam Quality Assessment: Supplemental Oxygen General: Alert, Oriented, Cooperative, No Acute Distress HEENT: Pupils Equal Neck: Supple, Trachea Midline Lungs: Clear to Auscultation, Normal Respiratory Effort Cardiovascular: Regular Rate, Regular Rhythm GI/Abdominal Exam: Normal Bowel Sounds, Soft, Non-Tender, No Organomegaly Extremities: Normal Inspection, Normal Range of Motion, Non-Tender, Pedal Edema , Other (P Paige of +1 bilaterally has improved since yesterday secondary to diuretics). No: No Pedal Edema Skin: Warm, Dry, Intact Neurological: No New Focal Deficit (Patient looks much better than he did prior to admission) Psy/Mental Status: Alert, Normal Affect, Normal Mood - Problem List & Annotations (1) COPD (chronic obstructive pulmonary disease) SNOMED Code(s): 76906697 Code(s): J44.9 - CHRONIC OBSTRUCTIVE PULMONARY DISEASE, UNSPECIFIED Status : Acute Current Visit: Yes (2) Hypoxia SNOMED Code(s): 314357801 Code(s): R09.02 - HYPOXEMIA Status: Acute Current Visit: Yes (3) COPD (chronic obstructive pulmonary disease) SNOMED Code(s): 64729434 Code(s): J44.9 - CHRONIC OBSTRUCTIVE PULMONARY DISEASE, UNSPECIFIED Status : Acute Current Visit: Yes Qualifiers: COPD type: unspecified COPD Qualified Code(s): J44.9 - Chronic obstructive pulmonary disease, unspecified - Problem List Review Problem List Initiated/Reviewed/Updated: Yes - My Orders Last 24 Hours: My Active Orders 12/20/18 07:50 EKG 12 Lead [EKG Documentation Completion] [RC] STAT 12/20/18 13:26 Admission Status [Patient Status] [ADT] Routine - Assessment Assessment:: Assessment #1 hypoxia #2 COPD exacerbation #3 CHF exacerbation - Plan Plan:: Will continue all medications as directed per nursing chart will continue oxygen by nasal cannula at 2 L/m will have the patient get up and walk today, O2 sat trial while walking Patient will be picked up by primary care provider in the morning and I have spoke with him today Dr. Davenport in regards to the patient and his improvement Floor nursing staff has been instructed to call if anything changes of the patient's condition
[2018-12-21] MEDS: Levalbuterol HCl 1.25 MG/0.5 ML Neb NEB SCH ×3 (03:29→10:10)
[2018-12-21 06:08] VITALS: BP 169/80
[2018-12-21] MEDS: Acetaminophen 500 MG Tab PO SCH (07:25)
[2018-12-21] MEDS: guaiFENesin 600 MG Tab.ER PO SCH (07:25)
[2018-12-21] MEDS: Carvedilol 25 MG Tab PO SCH (07:26)
[2018-12-21] MEDS: DULoxetine 30 MG Cap PO SCH (07:26)
[2018-12-21] MEDS: Furosemide 20 MG/2 ML VIAL IV SCH (07:26)
[2018-12-21] MEDS: Azithromycin 250 MG Tab PO SCH (07:26)
[2018-12-21] MEDS: Aspirin 81 MG Tab.EC PO SCH (07:26)
[2018-12-21] MEDS: methylPREDNISolone Sodium Succinate 125 MG/2 ML SDV IVPUSH SCH (07:26)
[2018-12-21] MEDS: Finasteride 5 MG Tab PO SCH (07:26)
[2018-12-21] MEDS: Gabapentin 400 MG Cap PO SCH (07:26)
[2018-12-21] MEDS: FLAXSEED OIL 1000 MG PO SCH (07:27)
[2018-12-21] MEDS: Non-Formulary Medication 1 Each (Pravastatin Sodium 40 MG) PO SCH (07:27)
--- NOTE | 2018-12-21 10:21 | PCM.DCSUM1 ---
Discharge Summary - Hospital Course Free Text/Narrative:: Discharge Diagnoses: -COPD, exacerbation -Chest pain of undetermined origin -Atherosclerotic disease, including Hx CABG of LAD, mild peripheral artery disease L leg -CHF with ankle edema -Limited mobility secondary to pubic ramus, R acetabulum, L sacral fractures Reason for Admission: Admitted to observation for weakness, nearsyncope on 12/18, had low-grade fever and cough consistent with exacerbation of COPD, required oxygen at first to keep oximetry up to 90%. Initial findings: -Systolic murmur not noted that he does have one -Decreased lung sounds, a few rales -CXR unremarkable -WBC 9100, Hgb 14.7, BMP unremarkable, troponin negative -EKG shows LBBB, not noted previously but his last EKG had been 4 years ago Treatment and Course in Hospital: First admitted to Observation because of his need for oxygen, given oral Zithromax for the acute bronchitis, COPD. He continued to be on 2 L of oxygen on 12/20 so he was switched to Acute Care, but then able to wean off shortly after that. He had an episode of chest pain, similar to what he has had previous at home, but a second troponin was also negative. This cleared in about an hour and he had no further chest pain. Discussed with Cardiology on- call and we agreed that he should see Cardiology again within 2 weeks because of the intermittent chest pain and because of his Hx of porcine aortic valve replacement, last EchoKG 07/25. He felt much better on day of D/C, on room air and free of any chest pain. Did not have him on cardiac rehabilitation program director but his rhythm was always regular, hasnt had atrial fib since his ablation procedure. He remained afebrile through this hospitalization. Condition on discharge: -Regular heart rhythm, grade 2 systolic murmur consistent with his porcine aortic valve replacement -Breath sounds diminished, PEF 245 L/min (47% of predicted) -2+ ankle edema -Obese, doesnt move well, needs help sitting up in bed Discharge Plan: -Appointment requested for cardiology within 2 weeks via his clinic chart - will make appointment to see [facility] within 2-3 weeks -Advised to prepare for getting on inhalers for COPD and this time he must actually use them -Discussed antibiotic Rx for acute bronchitis, the difference between people with and without COPD -Has one more day of Zithromax to finish, Rx given Diagnosis: Stroke: No Modified Sac Scale: No Signif.Disability Despite Sympt.Able to Carry Out Usual Act./Duties Modified Blair Scale Score: 1 - Discharge Data Discharge Date: 12/21/18 Discharge Disposition: Home, Self-Care 01 Condition: Good - Discharge Plan *PRESCRIPTION DRUG MONITORING PROGRAM REVIEWED*: Not Applicable *COPY OF PRESCRIPTION DRUG MONITORING REPORT IN PATIENT SULEMAN: Not Applicable Prescriptions/Med Rec: Azithromycin [Zithromax] 250 mg PO DAILY 1 Days #1 tablet Home Medications: Home Meds Acetaminophen [Acetaminophen Extra Strength] 1,000 mg PO Q8HR 02/13/15 [History] Aspirin [Halfprin] 81 mg PO DAILY 02/13/15 [History] Carvedilol [Coreg] 25 mg PO BIDM 02/13/15 [History] Finasteride [Proscar] 5 mg PO DAILY 02/13/15 [History] Flaxseed Oil [Flax Oil] 1,000 mg PO DAILY 02/13/15 [History] Furosemide [Lasix] 20 mg PO BID 02/13/15 [History] Lutein 6 mg PO DAILY 02/13/15 [History] Multivitamin with Minerals [Multiple Vitamin] 1 tab PO DAILY 02/13/15 [History] Pravastatin [Pravachol] 40 mg PO DAILY 02/13/15 [History] Vit B Cmplx 3/Fa/Vit C/Biotin [Mirian-Babar Rx Tablet] 1 each PO DAILY 02/13/15 [ History] Docusate Sodium/Sennosides [Senna Plus] 1 tab PO BID #60 tablet 05/18/15 [Rx] Polyethylene Glycol 3350 [MiraLAX] 17 gm PO DAILY #30 packet 05/18/15 [Rx] Baclofen 10 mg PO TID PRN 12/18/18 [History] DULoxetine [Cymbalta] 30 mg PO TID 12/18/18 [History] Gabapentin [Neurontin] 400 mg PO BID 12/18/18 [History] Gabapentin [Neurontin] 400 mg PO BID 12/18/18 [History] Ipratropium [Atrovent HFA] 2 puff IH Q4H PRN 12/18/18 [History] Vitamin E (dl, acetate) [Vitamin E] 200 units PO BID 12/18/18 [History] Azithromycin [Zithromax] 250 mg PO DAILY 1 Days #1 tablet 12/21/18 [Rx] Forms: ED Department Discharge Referrals: Latoya Prince DO [Primary Care Provider] - - Discharge Summary/Plan Comment DC Time >30 min.: No - Patient Data Vitals - Most Recent: Last Vital Signs Temp 35.9 C 12/21/18 06:00 Pulse 74 12/21/18 07:26 Resp 14 12/21/18 06:00 BP 169/80 H 12/21/18 07:26 Pulse Ox 94 L 12/21/18 07:47 Weight - Most Recent: 125.464 kg I&O - Last 24 hours: Intake & Output 12/20/18 12/21/18 12/21/18 22:59 06:59 14:59 Intake Total 840 620 240 Output Total 600 630 Balance 240 -10 240 RADHA Results - Last 24 hrs: Microbiology 12/18/18 18:35 Aerobic Blood Culture - Preliminary Blood - Venous - Lab Draw NO GROWTH AFTER 2 DAYS Anaerobic Blood Culture - Preliminary NO GROWTH AFTER 2 DAYS 12/18/18 18:30 Aerobic Blood Culture - Preliminary Blood - Venous NO GROWTH AFTER 2 DAYS Anaerobic Blood Culture - Preliminary NO GROWTH AFTER 2 DAYS Med Orders - Current: Current Medications Acetaminophen (Tylenol Extra Strength) 1,000 mg PO Q8HR COUNTS INCLUDE 234 BEDS AT THE [facility] Last Admin: 12/21/18 07:25 Dose: 1,000 mg Aspirin (Halfprin) 81 mg PO DAILY COUNTS INCLUDE 234 BEDS AT THE [facility] Last Admin: 12/21/18 07:26 Dose: 81 mg Azithromycin (Zithromax) 250 mg PO DAILY COUNTS INCLUDE 234 BEDS AT THE [facility] Stop: 12/22/18 08:01 Last Admin: 12/21/18 07:26 Dose: 250 mg Baclofen (Lioresal) 10 mg PO TID PRN PRN Reason: Other Carvedilol (Coreg) 25 mg PO BIDM COUNTS INCLUDE 234 BEDS AT THE [facility] Last Admin: 12/21/18 07:26 Dose: 25 mg Duloxetine HCl (Cymbalta) 30 mg PO TID COUNTS INCLUDE 234 BEDS AT THE [facility] Last Admin: 12/21/18 07:26 Dose: 30 mg Finasteride (Proscar) 5 mg PO DAILY COUNTS INCLUDE 234 BEDS AT THE [facility] Last Admin: 12/21/18 07:26 Dose: 5 mg Furosemide (Lasix) 20 mg IV Q8H COUNTS INCLUDE 234 BEDS AT THE [facility] Last Admin: 12/21/18 07:26 Dose: 20 mg Gabapentin (Neurontin) 400 mg PO BID COUNTS INCLUDE 234 BEDS AT THE [facility] Last Admin: 12/21/18 07:26 Dose: 400 mg Guaifenesin (Mucinex) 600 mg PO TID COUNTS INCLUDE 234 BEDS AT THE [facility] Last Admin: 12/21/18 07:25 Dose: 600 mg Levalbuterol HCl (Xopenex) 1.25 mg NEB Q4H COUNTS INCLUDE 234 BEDS AT THE [facility] Last Admin: 12/21/18 10:10 Dose: 1.25 mg Methylprednisolone Sodium Succinate (Solu-Medrol) 125 mg IVPUSH Q8H COUNTS INCLUDE 234 BEDS AT THE [facility] Last Admin: 12/21/18 07:26 Dose: 125 mg Non-Formulary Medication (Flaxseed Oil [Flax Oil]) 1,000 mg PO DAILY COUNTS INCLUDE 234 BEDS AT THE [facility] Last Admin: 12/21/18 07:27 Dose: Not Given Non-Formulary Medication (Pravastatin Sodium) 40 mg PO DAILY COUNTS INCLUDE 234 BEDS AT THE [facility] Last Admin: 12/21/18 07:27 Dose: Not Given Polyethylene Glycol (Miralax) 17 gm PO DAILY PRN PRN Reason: Constipation Last Admin: 12/20/18 06:36 Dose: 17 gm Senna/Docusate Sodium (Senna Plus) 1 tab PO BID COUNTS INCLUDE 234 BEDS AT THE [facility] Last Admin: 12/21/18 07:26 Dose: 1 tab Sodium Chloride (Saline Flush) 10 ml IV ASDIRECTED PRN PRN Reason: Keep Vein Open Last Admin: 12/20/18 23:09 Dose: 10 ml Discontinued Medications Acetaminophen (Tylenol Extra Strength) 1,000 mg PO ONETIME ONE Stop: 12/18/18 17:51 Last Admin: 12/18/18 18:03 Dose: 1,000 mg Azithromycin (Zithromax) 500 mg PO ONETIME ONE Stop: 12/19/18 00:03 Last Admin: 12/19/18 00:41 Dose: 500 mg Guaifenesin (Mucinex) 600 mg PO ONETIME ONE Stop: 12/19/18 00:06 Last Admin: 12/19/18 01:26 Dose: Not Given Guaifenesin (Robitussin) 400 mg PO Q6H PRN PRN Reason: Cough Guaifenesin (Robitussin) 400 mg PO ONETIME ONE Stop: 12/19/18 00:15 Last Admin: 12/19/18 01:00 Dose: 400 mg Levalbuterol HCl (Xopenex) 1.25 mg NEB Q4H COUNTS INCLUDE 234 BEDS AT THE [facility] Last Admin: 12/19/18 00:36 Dose: 1.25 mg Non-Formulary Medication (Gabapentin) 400 mg PO BID TIFFANI Polyethylene Glycol (Miralax) 17 gm PO DAILY TIFFANI
== END 2018-12-21 10:25 | disposition home or self-care (01) | DRG 192 ==
LOC: VM.ED 17:34 → VM.MS 20:11 → OBSVTOIN 12-20 13:20
PROVIDERS: ADMIT Family Medicine; ATTEND Family Medicine
DX: J44.1 Chronic obstructive pulmonary disease with (acute) exacerbation (principal); I11.0 Hypertensive heart disease with heart failure; I25.10 Atherosclerotic heart disease of native coronary artery without angina pectoris; I73.9 Peripheral vascular disease, unspecified; Z74.09 Other reduced mobility; H53.8 Other visual disturbances; E78.5 Hyperlipidemia, unspecified; I48.0 Paroxysmal atrial fibrillation; N40.0 Benign prostatic hyperplasia without lower urinary tract symptoms; E66.9 Obesity, unspecified; H35.30 Unspecified macular degeneration; H26.9 Unspecified cataract; E78.00 Pure hypercholesterolemia, unspecified; I50.9 Heart failure, unspecified; M19.90 Unspecified osteoarthritis, unspecified site; Z68.36 Body mass index [BMI] 36.0-36.9, adult; Z95.1 Presence of aortocoronary bypass graft; S32.502D Unspecified fracture of left pubis, subsequent encounter for fracture with routine healing; S32.501D Unspecified fracture of right pubis, subsequent encounter for fracture with routine healing; S32.401D Unspecified fracture of right acetabulum, subsequent encounter for fracture with routine healing; S32.10XD Unspecified fracture of sacrum, subsequent encounter for fracture with routine healing; Z79.01 Long term (current) use of anticoagulants; Z95.2 Presence of prosthetic heart valve; J44.9 Chronic obstructive pulmonary disease, unspecified; R05 Cough; Z87.891 Personal history of nicotine dependence; R50.9 Fever, unspecified; R53.1 Weakness; Z88.1 Allergy status to other antibiotic agents; Z88.7 Allergy status to serum and vaccine; Z91.018 Allergy to other foods; Z79.82 Long term (current) use of aspirin; Z79.899 Other long term (current) drug therapy; R53.83 Other fatigue; R09.02 Hypoxemia
CPT/HCPCS: 36415 ×2; 71045; 80048; 81001; 84484 ×2; 85025; 87040 ×2; 93005 ×2; 94640 ×9; 94760; 96374; 96375; 96376 ×2; 99284; 99285; A9270 ×34; G0378 ×2; J1940 ×5; J2930 ×5

== ENCOUNTER 2022-05-29 08:31 | Inpatient (IN) | payer MEDICARE ==
[2022-05-29] MEDS ORDERED: Sodium Chloride 0.9% 10 ML Syringe FLUSH PRN (12:04)
[2022-05-29] MEDS ORDERED: Baclofen 10 MG Tab PO PRN (12:04)
[2022-05-29] MEDS ORDERED: Albuterol/Ipratropium 3.0-0.5 MG/3 ML Neb Soln INH PRN (12:04)
[2022-05-29] MEDS: Torsemide 20 MG Tab PO SCH (17:15)
[2022-05-29] MEDS: Potassium Chloride 20 MEQ Tab.ER PO SCH (17:16)
[2022-05-29] MEDS: Carvedilol 25 MG Tab PO SCH (17:16)
[2022-05-29] MEDS: DULoxetine 30 MG Cap PO SCH ×2 (17:17→20:15)
[2022-05-29] MEDS: Albuterol/Ipratropium 3.0-0.5 MG/3 ML Neb Soln INH SCH ×2 (17:18→20:15)
[2022-05-29] MEDS: Gabapentin 400 MG Cap PO SCH (20:15)
[2022-05-29] MEDS: Doxycycline Monohydrate 100 MG Cap PO SCH (20:15)
[2022-05-30] MEDS: Albuterol/Ipratropium 3.0-0.5 MG/3 ML Neb Soln INH SCH ×3 (06:05→20:39)
[2022-05-30] MEDS: Finasteride 5 MG Tab PO SCH (08:46)
[2022-05-30] MEDS: Pravastatin 20 MG Tab PO SCH (08:46)
[2022-05-30] MEDS: Torsemide 20 MG Tab PO SCH ×2 (08:47→17:20)
[2022-05-30] MEDS: Doxycycline Monohydrate 100 MG Cap PO SCH ×2 (08:48→20:40)
[2022-05-30] MEDS: DULoxetine 30 MG Cap PO SCH ×3 (08:48→20:40)
[2022-05-30] MEDS: Aspirin 81 MG Tab.EC PO SCH (08:51)
[2022-05-30] MEDS: Spironolactone 25 MG Tab PO SCH (08:51)
[2022-05-30] MEDS: predniSONE 20 MG Tab PO SCH (08:52)
[2022-05-30] MEDS: Tamsulosin 0.4 MG Cap.ER PO SCH (08:52)
[2022-05-30] MEDS: Carvedilol 25 MG Tab PO SCH ×2 (08:52→17:20)
[2022-05-30] MEDS: Potassium Chloride 20 MEQ Tab.ER PO SCH ×2 (08:53→17:23)
[2022-05-30] MEDS: Psyllium Husk Powder Sugar Free 5.85 GM Packet PO SCH (08:53)
[2022-05-30] MEDS: Enoxaparin 40 MG/0.4 ML Syringe SUBCUT SCH (12:14)
[2022-05-30] MEDS: Gabapentin 400 MG Cap PO SCH (20:39)
[2022-05-31] MEDS: Albuterol/Ipratropium 3.0-0.5 MG/3 ML Neb Soln INH SCH ×3 (06:28→20:07)
[2022-05-31] MEDS: Doxycycline Monohydrate 100 MG Cap PO SCH ×2 (08:43→20:06)
[2022-05-31] MEDS: Potassium Chloride 20 MEQ Tab.ER PO SCH ×2 (08:43→18:01)
[2022-05-31] MEDS: Tamsulosin 0.4 MG Cap.ER PO SCH (08:43)
[2022-05-31] MEDS: Psyllium Husk Powder Sugar Free 5.85 GM Packet PO SCH (08:44)
[2022-05-31] MEDS: Pravastatin 20 MG Tab PO SCH (08:44)
[2022-05-31] MEDS: DULoxetine 30 MG Cap PO SCH ×3 (08:45→20:06)
[2022-05-31] MEDS: Aspirin 81 MG Tab.EC PO SCH (08:45)
[2022-05-31] MEDS: Finasteride 5 MG Tab PO SCH (08:45)
[2022-05-31] MEDS: predniSONE 20 MG Tab PO SCH (08:45)
[2022-05-31] MEDS: Carvedilol 25 MG Tab PO SCH ×2 (08:45→18:04)
[2022-05-31] MEDS: Spironolactone 25 MG Tab PO SCH (08:47)
[2022-05-31] MEDS: Torsemide 20 MG Tab PO SCH ×2 (10:55→18:00)
[2022-05-31] MEDS: Enoxaparin 40 MG/0.4 ML Syringe SUBCUT SCH (11:02)
[2022-05-31] MEDS: Gabapentin 400 MG Cap PO SCH (20:06)
[2022-06-01] MEDS: Albuterol/Ipratropium 3.0-0.5 MG/3 ML Neb Soln INH SCH ×3 (06:12→20:16)
[2022-06-01] MEDS: Psyllium Husk Powder Sugar Free 5.85 GM Packet PO SCH ×2 (06:23→08:14)
[2022-06-01] MEDS ORDERED: Bisacodyl 10 MG Supp RECTAL PRN (07:38)
[2022-06-01] MEDS: Finasteride 5 MG Tab PO SCH (08:11)
[2022-06-01] MEDS: Torsemide 20 MG Tab PO SCH ×2 (08:11→17:55)
[2022-06-01] MEDS: Carvedilol 25 MG Tab PO SCH ×2 (08:11→17:55)
[2022-06-01] MEDS: predniSONE 20 MG Tab PO SCH (08:12)
[2022-06-01] MEDS: DULoxetine 30 MG Cap PO SCH ×3 (08:12→20:16)
[2022-06-01] MEDS: Potassium Chloride 20 MEQ Tab.ER PO SCH ×2 (08:12→17:55)
[2022-06-01] MEDS: Aspirin 81 MG Tab.EC PO SCH (08:12)
[2022-06-01] MEDS: Tamsulosin 0.4 MG Cap.ER PO SCH (08:12)
[2022-06-01] MEDS: Spironolactone 25 MG Tab PO SCH (08:13)
[2022-06-01] MEDS: Pravastatin 20 MG Tab PO SCH (08:13)
[2022-06-01] MEDS: Enoxaparin 40 MG/0.4 ML Syringe SUBCUT SCH (12:09)
[2022-06-01] MEDS ORDERED: Gabapentin 300 MG Cap ONE (19:50)
[2022-06-01] MEDS ORDERED: Gabapentin 100 MG Cap ONE (19:50)
[2022-06-01] MEDS: Gabapentin 400 MG Cap PO SCH (20:15)
[2022-06-02] MEDS: Albuterol/Ipratropium 3.0-0.5 MG/3 ML Neb Soln INH SCH ×3 (06:22→20:00)
[2022-06-02] MEDS: Acetaminophen 500 MG Tab PO PRN (06:33)
[2022-06-02] MEDS: Pravastatin 20 MG Tab PO SCH (09:05)
[2022-06-02] MEDS: Torsemide 20 MG Tab PO SCH ×2 (09:07→17:17)
[2022-06-02] MEDS: Finasteride 5 MG Tab PO SCH (09:07)
[2022-06-02] MEDS: Carvedilol 25 MG Tab PO SCH ×2 (09:07→17:19)
[2022-06-02] MEDS: Aspirin 81 MG Tab.EC PO SCH (09:08)
[2022-06-02] MEDS: Psyllium Husk Powder Sugar Free 5.85 GM Packet PO SCH (09:08)
[2022-06-02] MEDS: Spironolactone 25 MG Tab PO SCH (09:08)
[2022-06-02] MEDS: Tamsulosin 0.4 MG Cap.ER PO SCH (09:08)
[2022-06-02] MEDS: DULoxetine 30 MG Cap PO SCH ×3 (09:08→21:12)
[2022-06-02] MEDS: Potassium Chloride 20 MEQ Tab.ER PO SCH (09:16)
[2022-06-02] MEDS: Enoxaparin 40 MG/0.4 ML Syringe SUBCUT SCH (12:32)
[2022-06-02] MEDS: Magnesium Hydroxide 400 MG/5 ML Susp 30 ML Cup PO PRN (16:35)
[2022-06-02] MEDS: Gabapentin 400 MG Cap PO SCH (21:12)
[2022-06-03] MEDS: Acetaminophen 500 MG Tab PO PRN (01:22)
[2022-06-03] MEDS: Magnesium Hydroxide 400 MG/5 ML Susp 30 ML Cup PO PRN ×2 (05:55→22:15)
[2022-06-03] MEDS: Albuterol/Ipratropium 3.0-0.5 MG/3 ML Neb Soln INH SCH ×3 (06:03→20:28)
[2022-06-03] MEDS: Pravastatin 20 MG Tab PO SCH (08:27)
[2022-06-03] MEDS: Psyllium Husk Powder Sugar Free 5.85 GM Packet PO SCH (08:27)
[2022-06-03] MEDS: Torsemide 20 MG Tab PO SCH ×2 (08:28→17:17)
[2022-06-03] MEDS: Tamsulosin 0.4 MG Cap.ER PO SCH (08:29)
[2022-06-03] MEDS: Finasteride 5 MG Tab PO SCH (08:29)
[2022-06-03] MEDS: Potassium Chloride 20 MEQ Tab.ER PO SCH (08:29)
[2022-06-03] MEDS: Aspirin 81 MG Tab.EC PO SCH (08:29)
[2022-06-03] MEDS: DULoxetine 30 MG Cap PO SCH ×3 (08:29→20:28)
[2022-06-03] MEDS: Spironolactone 25 MG Tab PO SCH (08:30)
[2022-06-03] MEDS: Carvedilol 25 MG Tab PO SCH ×2 (08:30→17:17)
[2022-06-03] MEDS: Magnesium Oxide 400 MG Tab PO SCH (10:02)
[2022-06-03] MEDS: Enoxaparin 40 MG/0.4 ML Syringe SUBCUT SCH (13:00)
[2022-06-03] MEDS: Gabapentin 400 MG Cap PO SCH (20:28)
[2022-06-04] MEDS: Albuterol/Ipratropium 3.0-0.5 MG/3 ML Neb Soln INH SCH ×3 (06:06→20:02)
[2022-06-04] MEDS: Psyllium Husk Powder Sugar Free 5.85 GM Packet PO SCH (10:16)
[2022-06-04] MEDS: Pravastatin 20 MG Tab PO SCH (10:16)
[2022-06-04] MEDS: Torsemide 20 MG Tab PO SCH ×2 (10:17→18:09)
[2022-06-04] MEDS: Tamsulosin 0.4 MG Cap.ER PO SCH (10:19)
[2022-06-04] MEDS: Aspirin 81 MG Tab.EC PO SCH (10:19)
[2022-06-04] MEDS: DULoxetine 30 MG Cap PO SCH ×3 (10:19→20:02)
[2022-06-04] MEDS: Spironolactone 25 MG Tab PO SCH (10:19)
[2022-06-04] MEDS: Finasteride 5 MG Tab PO SCH (10:20)
[2022-06-04] MEDS: Carvedilol 25 MG Tab PO SCH ×2 (10:20→18:09)
[2022-06-04] MEDS: Magnesium Oxide 400 MG Tab PO SCH (10:20)
[2022-06-04] MEDS: Enoxaparin 40 MG/0.4 ML Syringe SUBCUT SCH (12:09)
[2022-06-04] MEDS: Gabapentin 400 MG Cap PO SCH (20:02)
[2022-06-05] MEDS: Acetaminophen 500 MG Tab PO PRN (02:39)
[2022-06-05] MEDS: Albuterol/Ipratropium 3.0-0.5 MG/3 ML Neb Soln INH SCH ×3 (06:42→19:59)
[2022-06-05 07:33] LABS: ANION GAP 9.8 mmol/L (5-15)
[2022-06-05] MEDS: Psyllium Husk Powder Sugar Free 5.85 GM Packet PO SCH (09:03)
[2022-06-05] MEDS: Aspirin 81 MG Tab.EC PO SCH (09:03)
[2022-06-05] MEDS: Spironolactone 25 MG Tab PO SCH (09:03)
[2022-06-05] MEDS: DULoxetine 30 MG Cap PO SCH ×3 (09:05→19:59)
[2022-06-05] MEDS: Carvedilol 25 MG Tab PO SCH ×2 (09:05→17:57)
[2022-06-05] MEDS: Torsemide 20 MG Tab PO SCH ×2 (09:05→17:57)
[2022-06-05] MEDS: Pravastatin 20 MG Tab PO SCH (09:05)
[2022-06-05] MEDS: Tamsulosin 0.4 MG Cap.ER PO SCH (09:05)
[2022-06-05] MEDS: Finasteride 5 MG Tab PO SCH (09:06)
[2022-06-05] MEDS: Magnesium Oxide 400 MG Tab PO SCH (09:06)
[2022-06-05] MEDS: Enoxaparin 40 MG/0.4 ML Syringe SUBCUT SCH (12:49)
[2022-06-05] MEDS: Gabapentin 400 MG Cap PO SCH (19:59)
[2022-06-06] MEDS: Magnesium Hydroxide 400 MG/5 ML Susp 30 ML Cup PO PRN (06:16)
[2022-06-06] MEDS: Albuterol/Ipratropium 3.0-0.5 MG/3 ML Neb Soln INH SCH ×3 (06:17→20:14)
[2022-06-06] MEDS: DULoxetine 30 MG Cap PO SCH ×3 (08:11→20:14)
[2022-06-06] MEDS: Tamsulosin 0.4 MG Cap.ER PO SCH (08:11)
[2022-06-06] MEDS: Finasteride 5 MG Tab PO SCH (08:12)
[2022-06-06] MEDS: Pravastatin 20 MG Tab PO SCH (08:12)
[2022-06-06] MEDS: Aspirin 81 MG Tab.EC PO SCH (08:12)
[2022-06-06] MEDS: Spironolactone 25 MG Tab PO SCH (08:12)
[2022-06-06] MEDS: Torsemide 20 MG Tab PO SCH (08:13)
[2022-06-06] MEDS: Carvedilol 25 MG Tab PO SCH ×2 (08:14→17:22)
[2022-06-06] MEDS: Psyllium Husk Powder Sugar Free 5.85 GM Packet PO SCH (10:33)
[2022-06-06] MEDS: Enoxaparin 40 MG/0.4 ML Syringe SUBCUT SCH (13:05)
[2022-06-06] MEDS: Benzonatate 100 MG Cap PO SCH ×2 (17:22→20:14)
[2022-06-06] MEDS: Gabapentin 400 MG Cap PO SCH (20:14)
[2022-06-07] MEDS: Albuterol/Ipratropium 3.0-0.5 MG/3 ML Neb Soln INH SCH ×3 (06:08→20:20)
[2022-06-07] MEDS: DULoxetine 30 MG Cap PO SCH ×3 (08:11→20:20)
[2022-06-07] MEDS: Finasteride 5 MG Tab PO SCH (08:11)
[2022-06-07] MEDS: Tamsulosin 0.4 MG Cap.ER PO SCH (08:11)
[2022-06-07] MEDS: Aspirin 81 MG Tab.EC PO SCH (08:11)
[2022-06-07] MEDS: Benzonatate 100 MG Cap PO SCH ×3 (08:11→20:20)
[2022-06-07] MEDS: Spironolactone 25 MG Tab PO SCH (08:11)
[2022-06-07] MEDS: Carvedilol 25 MG Tab PO SCH ×2 (08:11→17:29)
[2022-06-07] MEDS: Psyllium Husk Powder Sugar Free 5.85 GM Packet PO SCH (08:12)
[2022-06-07] MEDS: Torsemide 20 MG Tab PO SCH (08:12)
[2022-06-07] MEDS: Pravastatin 20 MG Tab PO SCH (08:12)
[2022-06-07] MEDS: Enoxaparin 40 MG/0.4 ML Syringe SUBCUT SCH (12:20)
[2022-06-07] MEDS: Gabapentin 400 MG Cap PO SCH (20:19)
[2022-06-08] MEDS: Albuterol/Ipratropium 3.0-0.5 MG/3 ML Neb Soln INH SCH ×3 (06:32→20:28)
[2022-06-08] MEDS: Torsemide 20 MG Tab PO SCH (09:24)
[2022-06-08] MEDS: Finasteride 5 MG Tab PO SCH (09:25)
[2022-06-08] MEDS: Carvedilol 25 MG Tab PO SCH ×2 (09:25→17:36)
[2022-06-08] MEDS: DULoxetine 30 MG Cap PO SCH ×3 (09:25→20:28)
[2022-06-08] MEDS: Spironolactone 25 MG Tab PO SCH (09:25)
[2022-06-08] MEDS: Aspirin 81 MG Tab.EC PO SCH (09:25)
[2022-06-08] MEDS: Benzonatate 100 MG Cap PO SCH ×3 (09:25→20:28)
[2022-06-08] MEDS: Psyllium Husk Powder Sugar Free 5.85 GM Packet PO SCH (09:26)
[2022-06-08] MEDS: Pravastatin 20 MG Tab PO SCH (09:26)
[2022-06-08] MEDS: Tamsulosin 0.4 MG Cap.ER PO SCH (09:26)
[2022-06-08] MEDS: Enoxaparin 40 MG/0.4 ML Syringe SUBCUT SCH (13:11)
[2022-06-08] MEDS: Gabapentin 400 MG Cap PO SCH (20:28)
[2022-06-09] MEDS: Albuterol/Ipratropium 3.0-0.5 MG/3 ML Neb Soln INH SCH ×3 (06:10→20:01)
[2022-06-09 07:13] LABS: ANION GAP 6.7 mmol/L (5-15)
[2022-06-09] MEDS: Psyllium Husk Powder Sugar Free 5.85 GM Packet PO SCH (08:03)
[2022-06-09] MEDS: DULoxetine 30 MG Cap PO SCH ×3 (08:03→20:00)
[2022-06-09] MEDS: Benzonatate 100 MG Cap PO SCH ×3 (08:03→20:00)
[2022-06-09] MEDS: Tamsulosin 0.4 MG Cap.ER PO SCH (08:04)
[2022-06-09] MEDS: Aspirin 81 MG Tab.EC PO SCH (08:04)
[2022-06-09] MEDS: Pravastatin 20 MG Tab PO SCH (08:04)
[2022-06-09] MEDS: Spironolactone 25 MG Tab PO SCH (08:04)
[2022-06-09] MEDS: Finasteride 5 MG Tab PO SCH (08:04)
[2022-06-09] MEDS: Carvedilol 25 MG Tab PO SCH ×2 (08:05→18:05)
[2022-06-09] MEDS: Torsemide 20 MG Tab PO SCH (08:05)
[2022-06-09] MEDS: Enoxaparin 40 MG/0.4 ML Syringe SUBCUT SCH (12:26)
[2022-06-09] MEDS: Gabapentin 400 MG Cap PO SCH (20:00)
[2022-06-10] MEDS: Albuterol/Ipratropium 3.0-0.5 MG/3 ML Neb Soln INH SCH ×3 (06:14→20:00)
[2022-06-10] MEDS: DULoxetine 30 MG Cap PO SCH ×3 (08:49→20:00)
[2022-06-10] MEDS: Pravastatin 20 MG Tab PO SCH (08:49)
[2022-06-10] MEDS: Aspirin 81 MG Tab.EC PO SCH (08:49)
[2022-06-10] MEDS: Benzonatate 100 MG Cap PO SCH ×2 (08:50→12:25)
[2022-06-10] MEDS: Torsemide 20 MG Tab PO SCH (08:50)
[2022-06-10] MEDS: Carvedilol 25 MG Tab PO SCH ×2 (08:50→18:10)
[2022-06-10] MEDS: Spironolactone 25 MG Tab PO SCH (08:51)
[2022-06-10] MEDS: Finasteride 5 MG Tab PO SCH (08:51)
[2022-06-10] MEDS: Tamsulosin 0.4 MG Cap.ER PO SCH (08:52)
[2022-06-10] MEDS: Psyllium Husk Powder Sugar Free 5.85 GM Packet PO SCH (08:52)
[2022-06-10] MEDS: Enoxaparin 40 MG/0.4 ML Syringe SUBCUT SCH (12:25)
[2022-06-10] MEDS ORDERED: Benzonatate 100 MG Cap PO PRN (16:45)
[2022-06-10] MEDS: Gabapentin 400 MG Cap PO SCH (20:00)
[2022-06-11] MEDS: Albuterol/Ipratropium 3.0-0.5 MG/3 ML Neb Soln INH SCH ×3 (06:57→20:11)
[2022-06-11] MEDS: Torsemide 20 MG Tab PO SCH (09:35)
[2022-06-11] MEDS: Tamsulosin 0.4 MG Cap.ER PO SCH (09:36)
[2022-06-11] MEDS: Spironolactone 25 MG Tab PO SCH (09:36)
[2022-06-11] MEDS: Pravastatin 20 MG Tab PO SCH (09:36)
[2022-06-11] MEDS: Finasteride 5 MG Tab PO SCH (09:36)
[2022-06-11] MEDS: DULoxetine 30 MG Cap PO SCH ×3 (09:36→20:11)
[2022-06-11] MEDS: Aspirin 81 MG Tab.EC PO SCH (09:36)
[2022-06-11] MEDS: Carvedilol 25 MG Tab PO SCH ×2 (09:37→17:54)
[2022-06-11] MEDS: Polyethylene Glycol 3350 Powder 17 GM Packet PO SCH (09:37)
[2022-06-11] MEDS: Psyllium Husk Powder Sugar Free 5.85 GM Packet PO SCH (09:37)
[2022-06-11] MEDS: Gabapentin 400 MG Cap PO SCH (20:11)
[2022-06-12] MEDS: Albuterol/Ipratropium 3.0-0.5 MG/3 ML Neb Soln INH SCH ×3 (07:01→20:21)
[2022-06-12] MEDS: Polyethylene Glycol 3350 Powder 17 GM Packet PO SCH (08:29)
[2022-06-12] MEDS: Spironolactone 25 MG Tab PO SCH (08:30)
[2022-06-12] MEDS: Torsemide 20 MG Tab PO SCH (08:30)
[2022-06-12] MEDS: Psyllium Husk Powder Sugar Free 5.85 GM Packet PO SCH (08:30)
[2022-06-12] MEDS: Pravastatin 20 MG Tab PO SCH (08:30)
[2022-06-12] MEDS: Tamsulosin 0.4 MG Cap.ER PO SCH (08:30)
[2022-06-12] MEDS: Finasteride 5 MG Tab PO SCH (08:30)
[2022-06-12] MEDS: DULoxetine 30 MG Cap PO SCH ×3 (08:30→20:20)
[2022-06-12] MEDS: Aspirin 81 MG Tab.EC PO SCH (08:30)
[2022-06-12] MEDS: Carvedilol 25 MG Tab PO SCH ×2 (08:31→17:23)
[2022-06-12 09:05] LABS: ANION GAP 7.8 mmol/L (5-15)
[2022-06-12] MEDS: Magnesium Hydroxide 400 MG/5 ML Susp 30 ML Cup PO PRN (20:21)
[2022-06-12] MEDS: Gabapentin 400 MG Cap PO SCH (20:21)
[2022-06-13] MEDS: Acetaminophen 500 MG Tab PO PRN (06:35)
[2022-06-13] MEDS: Albuterol/Ipratropium 3.0-0.5 MG/3 ML Neb Soln INH SCH (06:48)
[2022-06-13 08:47] VITALS: BP 121/86; PULSE 76
[2022-06-13] MEDS: Pravastatin 20 MG Tab PO SCH (08:48)
[2022-06-13] MEDS: Carvedilol 25 MG Tab PO SCH (08:49)
[2022-06-13] MEDS: Torsemide 20 MG Tab PO SCH (08:49)
[2022-06-13] MEDS: Aspirin 81 MG Tab.EC PO SCH (08:49)
[2022-06-13] MEDS: Finasteride 5 MG Tab PO SCH (08:50)
[2022-06-13] MEDS: Tamsulosin 0.4 MG Cap.ER PO SCH (08:50)
[2022-06-13] MEDS: Spironolactone 25 MG Tab PO SCH (08:50)
[2022-06-13] MEDS: DULoxetine 30 MG Cap PO SCH (08:50)
[2022-06-13] MEDS: Psyllium Husk Powder Sugar Free 5.85 GM Packet PO SCH (08:51)
[2022-06-13] MEDS: Polyethylene Glycol 3350 Powder 17 GM Packet PO SCH (08:51)
== END 2022-06-13 09:25 | DRG 555 ==
LOC: VM.MS 14:15
PROVIDERS: ADMIT Internal Medicine; ATTEND Internal Medicine
DX: R29.898 Other symptoms and signs involving the musculoskeletal system (principal); I50.33 Acute on chronic diastolic (congestive) heart failure; J44.1 Chronic obstructive pulmonary disease with (acute) exacerbation; N40.0 Benign prostatic hyperplasia without lower urinary tract symptoms; K59.00 Constipation, unspecified; G89.29 Other chronic pain; I11.0 Hypertensive heart disease with heart failure; Z20.822 Contact with and (suspected) exposure to COVID-19; S32.9XXD Fracture of unspecified parts of lumbosacral spine and pelvis, subsequent encounter for fracture with routine healing; F03.90 Unspecified dementia, unspecified severity, without behavioral disturbance, psychotic disturbance, mood disturbance, and anxiety; E66.9 Obesity, unspecified; E78.5 Hyperlipidemia, unspecified; E78.1 Pure hyperglyceridemia; G47.33 Obstructive sleep apnea (adult) (pediatric); I73.9 Peripheral vascular disease, unspecified; R73.03 Prediabetes; I48.0 Paroxysmal atrial fibrillation
CPT/HCPCS: 36415; 51798; 71046; 80048; 80053; 81003; 82947; 83735; 83880; 84484; 85025; 90662; 94640; 95851-GO; 96125-GO; 97110-GP; 97116-GP; 97129-GO; 97161-GP; 97162-GP; 97164-GP; 97530-GO; 97535-GO; A9270-GY; G0008; J1650; J3490; J7512; J7620-GY; U0002